=== PATIENT | male | born 1995 | race Asian ===

== ENCOUNTER 2018-02-16 21:09 | Emergency (ER) | payer SELFPAY ==
--- NOTE | 2018-02-16 21:23 | ED ---
Laceration/Wound HPI - HPI Summary HPI Summary: 22 male presents ER brought in by ambulance with complaints of a laceration to his face rate above left eyebrow. Patient states he sustained this injury just prior to arrival. Patient was playing ping-pong when a paddle along striking patient on the face. States bleeding is well controlled. Is not on any blood thinners. Denies any loss of consciousness. No headache or vision changes. Is in minimal to no pain. States tetanus was updated 1 year ago. No past medical history. Has not taken any medications. No other injuries or complaints. - History of Current Complaint Stated Complaint: HEAD LAC Time Seen by Provider: 02/16/18 21:20 Hx Obtained From: Patient Mechanism of Injury: Sharp/Blunt Trauma Onset/Duration: Sudden Onset Aggravating: Movement Alleviating: Compression Timing: Constant Onset Severity: Mild Current Severity: None Pain Intensity: 0 Pain Scale Used: 0-10 Numeric Associated Signs & Symptoms: Negative - Allergy/Home Medications Allergies/Adverse Reactions: Allergies Allergy/AdvReac Type Severity Reaction Status Date / Time No Known Allergies Allergy Verified 02/16/18 21:15 Home Medications: Home Medications NK [No Home Medications Reported] 02/16/18 [History Confirmed 02/16/18] PMH/Surg Hx/FS Hx/Imm Hx Endocrine/Hematology History: Denies: Hx Anticoagulant Therapy Respiratory History: Denies: Hx Asthma - Surgical History Surgery Procedure, Year, and Place: none - Immunization History Date of Tetanus Vaccine: ~ 1 year ago,prior to beginning college Immunizations Up to Date: Yes Infectious Disease History: No Infectious Disease History: Denies: Traveled Outside the [place] in Last 30 Days - Family History Known Family History: Positive: None - Social History Alcohol Use: Occasionally Substance Use Type: Reports: None Smoking Status (MU): Never Smoked Tobacco Review of Systems Constitutional: Negative Eyes: Negative Cardiovascular: Negative Respiratory: Negative Gastrointestinal: Negative Musculoskeletal: Negative Positive: Other - laceration Neurological: Negative All Other Systems Reviewed And Are Negative: Yes Physical Exam Triage Information Reviewed: Yes Vital Signs On Initial Exam: Initial Vitals Temp Pulse Resp BP Pulse Ox 97.9 F 83 16 123/85 99 02/16/18 21:13 02/16/18 21:13 02/16/18 21:13 02/16/18 21:13 02/16/18 21:13 Vital Signs Reviewed: Yes Appearance: Positive: Well-Appearing, No Pain Distress, Well-Nourished Skin: Positive: Warm, Skin Color Reflects Adequate Perfusion, Dry, Other - 2cm laceration above left eyebrow, linear, SQ without FB, minimal oozing bleeding, well controlled. Negative: Cold, Numb, Cyanosis @, Pale, Erythema @ Head/Face: Positive: Normal Head/Face Inspection. Negative: Scalp Eyes: Positive: Normal, EOMI, MEG, Conjunctiva Clear ENT: Positive: Normal ENT inspection, Hearing grossly normal, Pharynx normal, TMs normal Neck: Positive: Supple, Nontender Respiratory/Lung Sounds: Positive: Clear to Auscultation, Breath Sounds Present. Negative: Rales, Rhonchi, Wheezes Cardiovascular: Positive: Normal, RRR, Pulses are Symmetrical in both Upper and Lower Extremities - Were making while. Negative: Murmur, Rub Abdomen Description: Positive: Nontender, Soft Bowel Sounds: Positive: Present Musculoskeletal: Positive: Normal, Strength/ROM Intact Neurological: Positive: Normal, Sensory/Motor Intact, Alert, Oriented to Person Place, Time, NV Bundle Intact Distally, Normal Gait Procedures - Laceration/Wound Repair 1 Location: face - above left eyebrow Description: Linear Anesthesia: Local, 1.0%, Lido Length, Depth and Shape: 2 cm linear SQ above left eyebrow Irrigated w/ Saline (ccs): 50 Laceration/Wound Explored: clean, no foreign body removed Closure: Single Layer Suture Type: Other - ethilon Number of Sutures: 4 Layer Closure?: Yes Sterile Dressing Applied?: Yes Diagnostics - Vital Signs Vital Signs Temp Pulse Resp BP Pulse Ox 02/16/18 21:13 97.9 F 83 16 123/85 99 - Laboratory Lab Statement: Any lab studies that have been ordered have been reviewed, and results considered in the medical decision making process. Laceration Repair Course/Dx - Course Course Of Treatment: Laceration was sutured with 4 sutures without complication. Well approximated and closed nicely. Patient tolerated procedure well. Sterile procedure was used. After thorough irrigation. Tetanus is up-to-date per patient within last year. Ibuprofen and cool compresses as needed for discomfort. No concerns for other head injury. States symptomatic. Rest of exam and vitals were normal. Follow-up with primary care provider. Have stitches removed in 5 days. No other concerns or complaints at this time. Triple antibiotic after keeping clean and dry without changing dressing for 2 days. Patient agrees and understands. Aware worsening signs and symptoms watch out for, such as infection. - Differential Dx Differental Diagnoses: Laceration - Clinical Impression Provider Diagnoses: Laceration Discharge - Sign-Out/Discharge Documenting (check all that apply): Discharge/Admit/Transfer - Discharge Plan Condition: Improved Disposition: HOME Patient Education Materials: Care For Your Stitches (ED), Laceration (ED) Referrals: [facility]OFT [Primary Care Provider] - Additional Instructions: keep clean and dry for 48 hours. apply triple antibiotic ointment after 48 hours. keep covered for 24 hours, after you may uncover or cover, whichever is desired. any signs of infection (redness, swelling, discharge, pain) please seek medical attention as discussed. have sutures removed in 5 days. ibuprofen for any discomfort. cool compresses, but do not allow water to leak on stitches. - Billing Disposition and Condition Condition: IMPROVED Disposition: Home
[2018-02-16] MEDS ORDERED: Lidocaine 1%* 5 ML VIAL ONE (22:45)
[2018-02-16 23:12] VITALS: BP 116/73
== END 2018-02-16 23:11 | disposition home or self-care (01) ==
LOC: ED 21:09
DX: S01.112A Laceration without foreign body of left eyelid and periocular area, initial encounter (principal); W22.8XXA Striking against or struck by other objects, initial encounter; Y92.9 Unspecified place or not applicable; Y93.73 Activity, racquet and hand sports
CPT/HCPCS: 12011; 99282